=== PATIENT | female | born 1990 | race Two or more races ===

== ENCOUNTER 2025-04-05 14:37 | Emergency (ER) | payer MEDICAID, OTHER ==
[~2025-04-05] VITALS: Ht 160 cm; Wt 60.5 kg
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
[2025-04-05 16:42] LABS: Hematocrit 38.7 % (36.0-46.0); Hemoglobin 13.2 g/dL (12.2-16.2); Mean Corpuscular Hemoglobin 31.2 pg (28.0-32.0); Mean Corpuscular Volume 91.2 fL (80.0-100.0); Nucleated Red Blood Cells % 0.0 %
[2025-04-05 17:45] LABS: Urine Protein, UAD TRACE (Negative)
[2025-04-05] MEDS ORDERED: HYDR-4902 PO ×2 (17:55→18:29)
[2025-04-05 18:31] VITALS: BP 93/58; PULSE 88; RESP 18; TEMP 98.2; O2SAT 98
== END 2025-04-05 18:33 | disposition home or self-care (01) ==
LOC: ER 14:37
DX: S80.01XA Contusion of right knee, initial encounter (principal); S20.219A Contusion of unspecified front wall of thorax, initial encounter; R42 Dizziness and giddiness; F17.210 Nicotine dependence, cigarettes, uncomplicated; V89.2XXA Person injured in unspecified motor-vehicle accident, traffic, initial encounter; Y93.89 Activity, other specified; Y92.410 Unspecified street and highway as the place of occurrence of the external cause; Y99.8 Other external cause status
CPT/HCPCS: 36415; 70450; 71046; 73562; 81001; 85025